=== PATIENT | female | born 1960 | race Caucasian/White ===

== ENCOUNTER 2017-04-25 23:46 | Emergency (ER) | payer OTHER ==
[~2017-04-25] VITALS: Ht 157.5 cm; Wt 68.2 kg
[~2017-04-25 23:46] MED LIST: ACITRETIN10 MG PO; CYMBALTA60 MG PO; DICYCLOMINE HCL20 MG PO; FIBER TABS625 MG PO; FLONASE16 G1 BOTH NARES; MOTRIN600 MG PO; NEURONTIN300 MG PO; NEXIUM40 MG PO; NORCO 5/3251 TABLET PO; NUCYNTA ER100 MG PO; SINGULAIR10 MG PO; STOOL SOFTENER100 MG PO; SUCRALFATE1 GM PO; ULTRAM50 MG PO; ZOFRAN8 MG PO
[2017-04-26 00:30] LABS: HEMATOCRIT 34.8 % (36.0-46.0); MCH 32.7 PG (29.0-34.0); MCHC 35.3 G/DL (30.0-36.0); MCV 92.6 FL (83-99); MEAN PLAT.VOLUME 9.2 uM^3 (9.5-12.4); PLATELET COUNT 226 K/uL (156-360); RBC DIS.WIDTH-CV 12.3 % (11.8-14.6); RED BLOOD COUNT 3.76 M/uL (3.80-5.20)
[2017-04-26 00:41] LABS: CHLORIDE 105 mEq/L (99-109); POTASSIUM 3.5 mEq/L (3.7-5.4); SODIUM 142 mEq/L (136-147)
[2017-04-26 00:43] LABS: GLUCOSE 137 mg/dL (70-99)
[2017-04-26 00:44] LABS: ANION GAP 12 MEQ/L (2-14)
[2017-04-26 00:45] LABS: TOTAL BILIRUBIN 0.2 mg/dL (0.0-1.0)
[2017-04-26 00:47] LABS: ALKALINE PHOSPHATASE 79 IU/L (3-129); GFR ESTIMATE (CALCULATED) > 59 mL/min/
[2017-04-26 00:48] LABS: UREA NITROGEN (BUN) 17 mg/dL (9-23)
[2017-04-26 00:50] LABS: CREATINE KINASE 257 IU/L (1-294)
[2017-04-26 02:39] VITALS: BP 94/53
== END 2017-04-26 02:40 | disposition home or self-care (01) ==
LOC: EME 23:46
PROVIDERS: Emergency Medicine
DX: R25.2 Cramp and spasm (principal); M79.604 Pain in right leg; M79.7 Fibromyalgia; K21.9 Gastro-esophageal reflux disease without esophagitis; Z87.891 Personal history of nicotine dependence
CPT/HCPCS: 80053; 82550; 85027; 99281; 99285; J1630; J2060; J2310; J2405; J3010; J7030

== ENCOUNTER → 2017-07-17 | Outpatient (CLI) | payer OTHER ==
[2017-07-17 16:29] LABS: APPEARANCE CLEAR/COLORLESS; CSF TUBE NUMBER TUBE #3
[2017-07-17 16:30] LABS: RED CELL COUNT 1 /MM^3 (0-1); WHITE CELL COUNT 0 /MM^3 (0-5)
[2017-07-17 17:14] LABS: CSF PROTEIN 20 mg/dL (15-45)
[2017-07-17 17:19] LABS: GLUCOSE, CSF 54 mg/dL (40-80)
[2017-07-19 16:36] LABS: Albumin, CSF 10.1 mg/dL (8.0-42.0); Albumin, Serum 4.6 g/dL (3.5-4.9); IgG Index, CSF 0.48 index (<0.66); IgG, CSF 0.9 mg/dL (0.8-7.7); IgG, Serum 861 mg/dL (694-1618); Synthesis Rate IgG, CSF -3.2 mg/24 h (-9.9-3.3)
== END | disposition home or self-care (01) ==
LOC: RAD 14:44
PROVIDERS: Psychiatry & Neurology Clinical Neurophysiology
PROC: 009U3ZZ Drainage of Spinal Canal, Percutaneous Approach (ICD-10-PCS; principal; 2017-07-17)
DX: R20.0 Anesthesia of skin (principal)
CPT/HCPCS: 62270; 77003; 82945; 83873 90; 83916 90; 84157; 86617 90; 86618 90; 87070; 87205; 89051